=== PATIENT | female | born 1945 | race Caucasian/White ===

== ENCOUNTER 2017-08-16 06:52 | Day surgery (SDC) | payer MEDICARE, MEDICAID ==
[~2017-08-16] VITALS: Ht 157.5 cm; Wt 66.2 kg
[2017-08-16] MEDS ORDERED: MEPERIDINE HCL/PF 100 MG/ML AMP ONE (07:43)
[2017-08-16] MEDS ORDERED: GLYCOPYRROLATE 0.2 MG/ML VIAL ONE (07:44)
[2017-08-16] MEDS: MIDAZOLAM HCL 5 MG/5 ML VIAL ONE ×3 (08:52→08:56)
[2017-08-16 10:43] VITALS: BP_SYST 107
== END 2017-08-16 10:00 | disposition home or self-care (01) ==
LOC: SDS 06:52 → SMU 07:25 → SDS 10:00
PROVIDERS: ATTEND Colon & Rectal Surgery
DX: Z86.010 Personal history of colon polyps (principal); K63.5 Polyp of colon; K57.30 Diverticulosis of large intestine without perforation or abscess without bleeding; I10 Essential (primary) hypertension; E78.1 Pure hyperglyceridemia; E11.69 Type 2 diabetes mellitus with other specified complication; K21.9 Gastro-esophageal reflux disease without esophagitis; Z88.0 Allergy status to penicillin; Z91.048 Other nonmedicinal substance allergy status; Z90.49 Acquired absence of other specified parts of digestive tract; Z79.2 Long term (current) use of antibiotics; F41.9 Anxiety disorder, unspecified; M51.16 Intervertebral disc disorders with radiculopathy, lumbar region; Z98.890 Other specified postprocedural states
CPT/HCPCS: 45380; 88305; J2175; J2250; J7030; J3490

== ENCOUNTER 2024-03-07 18:26 | Emergency (ER) | payer MEDICARE, MEDICAID ==
[~2024-03-07] VITALS: Ht 157.5 cm; Wt 66.2 kg
[2024-03-07 19:23] VITALS: BP_SYST 169; PULSE 86; RESP 18; TEMP 98.2; O2SAT 97
[2024-03-07 19:51] LABS: BASOPHILS # (AUTO) 0.1 K/uL (0.0-0.2); MONOCYTES # (AUTO) 0.6 K/uL (0.0-1.0)
[2024-03-07 20:04] LABS: BASOPHILS % (AUTO) 0.7 % (0.0-2.0); EOSINOPHILS % (AUTO) 0.4 % (0.0-4.0); HEMOGLOBIN 14.2 g/dL (12.0-16.0); LYMPHOCYTES # (AUTO) 1.7 K/uL (1.0-5.5); LYMPHOCYTES % (AUTO) 21.4 % (20.5-51.5); MEAN CORPUSCULAR HEMOGLOBIN 32 pg (27-31); MEAN CORPUSCULAR HGB CONC 36 % (32-36); MEAN CORPUSCULAR VOLUME 89 fL (79.0-98.0); MONOCYTES % (AUTO) 7.6 % (1.7-9.3); NEUTROPHILS # (AUTO) 5.6 K/uL (1.8-7.7); NEUTROPHILS % (AUTO) 69.9 % (40.0-70.0); RED BLOOD CELL COUNT(AUTO) 4.49 MIL/uL (4.2-6.2); RED CELL DISTRIBUTION WIDTH 12.5 % (9.0-15.0)
[2024-03-07 20:37] LABS: ANION GAP 10 (5-15); CALCIUM 9.2 mg/dL (8.4-11.0); CARBON DIOXIDE 27 mmol/L (23-29); CHLORIDE 104 mmol/L (98-107); CREATININE 0.98 mg/dL (0.55-1.30); GLUCOSE 172 mg/dL (74-106); POTASSIUM 4.8 mmol/L (3.5-5.1); SODIUM SERUM 141 mmol/L (136-145); UREA NITROGEN, BLOOD 13 mg/dL (8-21)
[2024-03-07 21:16] LABS: PLATELET COUNT (AUTO) 183 K/uL (130-430)
[2024-03-07] MEDS ORDERED: ACETAMINOPHEN 500 MG TABLET ONE (21:41)
[2024-03-07] MEDS: ACETAMINOPHEN 500 MG TABLET PO ONE (21:44)
[2024-03-07] MEDS: KETOROLAC TROMETHAMINE 30 MG VIAL IM ONE (21:46)
[2024-03-07 22:20] VITALS: BP_SYST 147; PULSE 76; RESP 18; TEMP 98.6; O2SAT 97
== END 2024-03-07 22:20 | disposition home or self-care (01) ==
LOC: SED 18:26
DX: M79.601 Pain in right arm (principal); E11.9 Type 2 diabetes mellitus without complications; I10 Essential (primary) hypertension
CPT/HCPCS: 99285; 71045; 80048; 85025; 84484; 36415; 93005; 96372; J1885

== ENCOUNTER 2024-06-10 00:31 | Emergency (ER) | payer MEDICARE, MEDICAID ==
[~2024-06-10] VITALS: Ht 160 cm; Wt 62.6 kg
[2024-06-10 00:43] VITALS: BP_SYST 159; PULSE 98; RESP 16; TEMP 98; O2SAT 98
[2024-06-10] MEDS ORDERED: OMEP20CA15 PO (01:40)
[2024-06-10] MEDS ORDERED: DILT120C95 PO (01:40)
[2024-06-10] MEDS ORDERED: ALEN70TA27 PO (01:40)
[2024-06-10] MEDS ORDERED: METF-379 PO (01:40)
[2024-06-10] MEDS ORDERED: MAGN400T50 PO (01:40)
[2024-06-10] MEDS ORDERED: D3-50 PO (01:40)
[2024-06-10] MEDS ORDERED: ESTR42.511 VG (01:40)
[2024-06-10] MEDS ORDERED: LISI20TA30 PO (01:40)
[2024-06-10 02:10] LABS: BILIRUBIN,URINE NEGATIVE (NEGATIVE); BLOOD, URINE NEGATIVE (NEGATIVE); CLARITY/URINE CLEAR (CLEAR); COLOR,URINE YELLOW (YELLOW); GLUCOSE,URINE NEGATIVE (NEGATIVE); KETONES,URINE NEGATIVE (NEGATIVE); LEUKOCYTE ESTERASE ,URINE NEGATIVE (NEGATIVE); NITRITE, URINE NEGATIVE (NEGATIVE); PROTEIN URINE NEGATIVE (NEGATIVE); UROBILINOGEN,URINE 0.2 (0.2-1.0)
[2024-06-10 02:12] LABS: BASOPHILS % (AUTO) 0.5 % (0.0-2.0); EOSINOPHILS # (AUTO) 0.1 K/uL (0.0-0.4); EOSINOPHILS % (AUTO) 0.8 % (0.0-4.0); HEMATOCRIT 38.3 % (36-48); HEMOGLOBIN 13.7 g/dL (12.0-16.0); LYMPHOCYTES # (AUTO) 1.8 K/uL (1.0-5.5); LYMPHOCYTES % (AUTO) 27.3 % (20.5-51.5); MEAN CORPUSCULAR HEMOGLOBIN 32 pg (27-31); MEAN CORPUSCULAR HGB CONC 36 % (32-36); MEAN CORPUSCULAR VOLUME 89 fL (79.0-98.0); MONOCYTES # (AUTO) 0.7 K/uL (0.0-1.0); MONOCYTES % (AUTO) 9.8 % (1.7-9.3); NEUTROPHILS # (AUTO) 4.2 K/uL (1.8-7.7); NEUTROPHILS % (AUTO) 61.6 % (40.0-70.0); PLATELET COUNT (AUTO) 213 K/uL (130-430); RED BLOOD CELL COUNT(AUTO) 4.29 MIL/uL (4.2-6.2); RED CELL DISTRIBUTION WIDTH 12.6 % (9.0-15.0); WHITE BLOOD COUNT (AUTO) 6.7 K/uL (4.8-10.8)
[2024-06-10 02:23] LABS: ALANINE AMINOTRANSFERASE 12 U/L (12-78); ALBUMIN 4.1 g/dL (3.4-4.8); ANION GAP 10 (5-15); ASPARTATE AMINOTRANSFERASE 14 U/L (10-37); BILIRUBIN,DIRECT 0.1 mg/dL (0.0-0.3); CALCIUM 10.2 mg/dL (8.4-11.0); CARBON DIOXIDE 30 mmol/L (23-29); CHLORIDE 104 mmol/L (98-107); CREATININE 0.85 mg/dL (0.55-1.30); GLUCOSE 186 mg/dL (74-106); POTASSIUM 4.1 mmol/L (3.5-5.1); SODIUM SERUM 144 mmol/L (136-145); TOTAL BILIRUBIN 0.5 mg/dL (0.0-1.0); TOTAL PROTEIN, SERUM 7.6 g/dL (6.4-8.3); UREA NITROGEN, BLOOD 12 mg/dL (8-21)
[2024-06-10 03:27] VITALS: BP_SYST 141; PULSE 77; RESP 18; TEMP 97.5; O2SAT 96
== END 2024-06-10 03:29 | disposition home or self-care (01) ==
LOC: SED 00:31
DX: I87.2 Venous insufficiency (chronic) (peripheral) (principal); R60.0 Localized edema; E11.9 Type 2 diabetes mellitus without complications; I10 Essential (primary) hypertension; Z79.899 Other long term (current) drug therapy; Z79.2 Long term (current) use of antibiotics
CPT/HCPCS: 36415; 71045; 80048; 80076; 81001; 81003; 83880; 84484; 85025; 93005; 93970; 99285